=== PATIENT | female | born 1970 | race African-American/Black ===

== ENCOUNTER 2017-02-06 10:31 | Emergency (ER) | payer OTHER ==
[2017-02-06 11:05] VITALS: BP 162/114
--- NOTE | 2017-02-06 11:55 | UC ---
Abdominal Pain Female HPI - HPI Summary HPI Summary: 3 days of constipation, abd pain nausea was unable to eat today - History of Current Complaint Chief Complaint: UCAbdominalPain Stated Complaint: VOMITING, RECTAL DISCOMFORT AND NAUSEA Time Seen by Provider: 02/06/17 11:22 Hx Obtained From: Patient Hx Last Menstrual Period: 01/23/17 ?: No Onset/Duration: Gradual Onset, Lasting Days - 3, Still Present Timing: Constant Severity Initially: Moderate Severity Currently: Moderate Pain Intensity: 5 Pain Scale Used: 0-10 Numeric Location: Diffuse - lower Radiates: No Character: Cramping Aggravating Factor(s): Nothing Alleviating Factor(s): Nothing Associated Signs and Symptoms: Positive: Constipation, Decreased Appetite, Nausea Allergies/Adverse Reactions: Allergies Allergy/AdvReac Type Severity Reaction Status Date / Time No Known Allergies Allergy Verified 02/06/17 10:56 PMH/Surg Hx/FS Hx/Imm Hx Previously Healthy: Yes - Surgical History Surgical History: Yes Surgery Procedure, Year, and Place: lump removed from left breast - Family History Known Family History: Positive: None - Social History Occupation: Unemployed Lives: With Family Alcohol Use: None Substance Use Type: None Smoking Status (MU): Never Smoked Tobacco Review of Systems Constitutional: Negative Skin: Negative Eyes: Negative ENT: Negative Respiratory: Negative Cardiovascular: Negative Gastrointestinal: Abdominal Pain, Nausea Genitourinary: Negative Motor: Negative Neurovascular: Negative Musculoskeletal: Negative Neurological: Negative Psychological: Negative Is Patient Immunocompromised?: No All Other Systems Reviewed And Are Negative: Yes Physical Exam Triage Information Reviewed: Yes Appearance: Well-Appearing, No Pain Distress, Well-Nourished Vital Signs: Initial Vital Signs Temp 98.6 F 02/06/17 10:57 Pulse 69 02/06/17 10:57 Resp 18 02/06/17 10:57 BP 162/114 02/06/17 10:57 Pulse Ox 100 02/06/17 10:57 Vital Signs Reviewed: Yes Eye Exam: Normal Eyes: Positive: Conjunctiva Clear ENT Exam: Normal ENT: Positive: Normal ENT inspection, Hearing grossly normal, TMs normal. Negative: Nasal congestion, Nasal drainage, Trismus, Muffled/hoarse voice Dental Exam: Normal Neck exam: Normal Neck: Positive: Supple, Nontender Respiratory Exam: Normal Respiratory: Positive: Chest non-tender, No respiratory distress, No accessory muscle use Cardiovascular Exam: Normal Cardiovascular: Positive: RRR, Brisk Capillary Refill Abdominal Exam: Normal Abdomen Description: Positive: No Organomegaly, Soft - firm in lower abdomen. Negative: CVA Tenderness (R), CVA Tenderness (L), Distended, Guarding, McBurney' s Point Tenderness, Peritoneal Signs, Pulsatile Mass, Splenomegaly Bowel Sounds: Positive: Present Musculoskeletal Exam: Normal Musculoskeletal: Positive: Strength Intact, ROM Intact Neurological Exam: Normal Neurological: Positive: Alert, Muscle Tone Normal Psychological Exam: Normal Skin Exam: Normal Diagnostics - Laboratory Diagnostic Studies Completed/Ordered: UA +1 leuks, lysed blood - Radiology No standard instances Xray Interpretation: Positive (See Comments) - moderate amont of stool no obstruction Radiology Interpretation Completed By: Radiologist Abd Pain Female Course/Dx - Course Course Of Treatment: increase fluids, culture urine, macobid, miralax follow with pcp prn - Differential Dx/Diagnosis Differential Diagnosis: Appendicitis, Bowel Obstruction, Constipation, Ovarian Cyst, Urinary Tract Infection Provider Diagnoses: Constipation, UTI, High blood pressure without diagnosis of hypertension Discharge - Discharge Plan Condition: Stable Disposition: HOME Prescriptions: Nitrofurantoin Monohyd Macro [Macrobid] 100 mg PO BID #20 cap Polyethylene Glycol 3350* [Miralax*] 17 gm PO DAILY #1 packet Patient Education Materials: Constipation (ED), Urinary Tract Infection in Women (ED), High Fiber Diet (ED), Hypertension (ED) Referrals: [facility] [place] [facility] [Outside] - 1 Week
--- NOTE | 2017-02-06 12:53 | RAD ---
INDICATION: Constipation, abdominal pain and nausea. COMPARISON: There are no prior studies available for comparison. TECHNIQUE: Supine and upright views of the abdomen were obtained. FINDINGS: The small bowel and colon appear nondistended. No free intraperitoneal air is seen. There is a moderate to large amount retained stool present. No abnormal calcifications are seen. There is a mild lumbar scoliosis convex toward the right side. IMPRESSION: MODERATE TO LARGE AMOUNT RETAINED STOOL, NO EVIDENCE FOR OBSTRUCTION.
== END 2017-02-06 13:26 | disposition home or self-care (01) ==
LOC: UCEAST 10:31
DX: K59.00 Constipation, unspecified (principal); N39.0 Urinary tract infection, site not specified; R03.0 Elevated blood-pressure reading, without diagnosis of hypertension
CPT/HCPCS: 74020; 81003; 87077; 87086; 87186; 99202; G0463

== ENCOUNTER 2017-02-09 00:30 | Emergency (ER) | payer OTHER ==
[2017-02-09] MEDS ORDERED: NS 0.9% 1000 ML* 2,000 ML IV ONE (03:45)
[2017-02-09] MEDS ORDERED: Ketorolac INJ* 30 MG/ML 1 ML VIAL IV ONE (03:51)
[2017-02-09] MEDS ORDERED: Ondansetron INJ* 2 MG/ML VIAL IV ONE (03:51)
[2017-02-09 04:37] LABS: Hematocrit 36 % (35-47); Mean Corpuscular HGB Conc 34 g/dl (31-36); Mean Corpuscular Hemoglobin 31 pg (27-31); Mean Corpuscular Volume 92 fL (80-97); Mean Platelet Volume 9 um3 (7.4-10.4); Red Blood Count 3.88 10^6/ul (4.0-5.4); Red Cell Distribution Width 13 % (10.5-15); White Blood Count 4.6 10^3/ul (3.5-10.8)
[2017-02-09 04:49] LABS: ALT 12 U/L (7-52); AST 18 U/L (13-39); Albumin 4.1 g/dL (3.2-5.2); Alkaline Phosphatase 55 U/L (34-104); Anion Gap 5 mmol/L (2-11); Blood Urea Nitrogen 12 mg/dL (6-24); C Reactive Protein < 1.00 mg/L (< 5.00); CO2 Carbon Dioxide 27 mmol/L (22-32); Calcium 9.1 mg/dL (8.6-10.3); Chloride 103 mmol/L (101-111); EGFR African American 137.2 (>60); EGFR Non-African American 106.7 (>60); Globulin 3.7 g/dL (2-4); Glucose 93 mg/dL (70-100); Lipase 40 U/L (11.0-82.0); Potassium 3.7 mmol/L (3.5-5.0); Sodium 135 mmol/L (133-145); Total Protein 7.8 g/dL (6.4-8.9)
[2017-02-09] MEDS ORDERED: Iohexol 300* (CONTRAST) 10 ML SDV IV ONE (05:45)
[2017-02-09 05:52] LABS: Urine Bacteria Absent (Absent); Urine Bilirubin Negative (Negative); Urine Glucose Negative (Negative); Urine Nitrite Negative (Negative)
--- NOTE | 2017-02-09 08:00 | RAD ---
CLINICAL HISTORY: Diffuse abdominal pain COMPARISON: None TECHNIQUE: Multiple contiguous axial CT scans were obtained of the abdomen and pelvis after the administration of intravenous contrast. Coronal and sagittal multiplanar reformations are submitted for review. Oral contrast was administered. Delayed images were obtained through the abdomen and pelvis. FINDINGS: LUNG BASES: The lung bases are clear. LIVER: The liver is normal in shape, size, contour, and attenuation. BILE DUCTS: There is no intrahepatic or extrahepatic biliary dilatation. GALLBLADDER: The gallbladder is normal, without pericholecystic inflammatory change. PANCREAS: The pancreas is normal, without mass or ductal dilatation. SPLEEN: Normal in size and appearance. UPPER GI TRACT: Evaluation of the gastrointestinal tract is limited by incomplete gastric distention. The upper GI tract is unremarkable. SMALL BOWEL AND MESENTERY: The small bowel is normal in contour, course, and caliber. There is no obstruction or dilatation. COLON: The colon is normal in contour, course, caliber. There is no pericolonic inflammatory change. There is large amount of stool throughout the colon. There is a tubular, vermiform, hollow viscus that is blind ending, and originates from the cecum, consistent with a normal appendix. There is no periappendiceal inflammatory change. This is best seen on axial image 63. ADRENALS: Normal bilaterally. KIDNEYS: The kidneys are normal in shape, size, contour, and axis. There is no hydronephrosis or nephrolithiasis. BLADDER: The bladder is smooth in contour. PELVIC ORGANS: The uterus is fibroid AORTA: The aorta is normal. IVC: Unremarkable LYMPH NODES: There is no lymphadenopathy by size criteria. ABDOMINAL WALL: There is no evidence for abdominal wall hernia. BONES AND SOFT TISSUES: Unremarkable OTHER: None IMPRESSION: FIBROID UTERUS. NO ACUTE CT PATHOLOGY OF THE VISUALIZED ABDOMEN OR PELVIS.
[2017-02-09] MEDS ORDERED: Magnesium CITRATE* 300 ML BTL PO ONE (08:20)
[2017-02-09] MEDS ORDERED: Sodium Phosphate ADULT ENEMA* 118 ml bottle PR ONE (08:20)
--- NOTE | 2017-02-09 08:20 | ED ---
Salome Christianson Rebecca, scribed for Karan iL MD on 02/09/17 at 0345 . Abdominal Pain/Female - HPI Summary HPI Summary: Pt is a 47 y/o F who presents to ED c/o abdominal pain. Sx began about 1 week ago upon arriving in the [facility] from [facility]. Pain began in the suprapubic region and is now diffuse, particularly painful in the RLQ, described as sharp pain in that location. Pain waxes and wanes in intensity. Sx aggravated by PO intake, alleviated by nothing. Additionally c/o intermittent fever, chills, nausea, abdominal bloating, and mild dysuria. Denies vaginal discharge. LNMP 1 week ago and last BM was 3 days ago. Per pt, she had a CT on Monday (3 days ago) that showed stool in her abdomen. Recent Dx of UTI for which she was started on Abx and she is unsure if they are relieving symptoms. - History of Current Complaint Chief Complaint: EDGeneral Stated Complaint: CHILLS/HEADACHE/UPSET STOMACH Time Seen by Provider: 02/09/17 03:31 Hx Obtained From: Patient Hx Last Menstrual Period: 01/23/17 Onset/Duration: Lasting Weeks - 1 week, Still Present Severity Currently: Moderate Pain Intensity: 5 Pain Scale Used: 0-10 Numeric Location: Diffuse Character: Sharp - in the RLQ Aggravating Factor(s): Food Alleviating Factor(s): Nothing Associated Signs and Symptoms: Positive: Fever, Nausea Allergies/Adverse Reactions: Allergies Allergy/AdvReac Type Severity Reaction Status Date / Time No Known Allergies Allergy Verified 02/09/17 00:40 PMH/Surg Hx/FS Hx/Imm Hx Previously Healthy: Yes Endocrine/Hematology History: Denies: Hx Diabetes Cardiovascular History: Denies: Hx Coronary Artery Disease, Hx Hypertension - Surgical History Surgery Procedure, Year, and Place: lump removed from left breast Infectious Disease History: No Infectious Disease History: Reports: Traveled Outside the [place] in Last 30 Days - Family History Known Family History: Positive: Cardiac Disease - mother - Social History Alcohol Use: None Substance Use Type: Reports: None Smoking Status (MU): Never Smoked Tobacco Review of Systems Positive: Fever, Chills Positive: Abdominal Pain, Nausea, Other - Abdominal distention Positive: dysuria All Other Systems Reviewed And Are Negative: Yes Physical Exam - Summary Physical Exam Summary: General: well-appearing, mild pain distress Skin: warm, color reflects adequate perfusion, dry Head: normal Eyes: EOMI, KYLE ENT: normal Neck: supple, nontender Respiratory: CTA, breath sounds present Cardiovascular: RRR Abdomen: soft, diffuse, mild tenderness Bowel: hypoactive bowel sounds Musculoskeletal: normal, strength/ROM intact Neurological: normal, sensory/motor intact, A&O x3 Psychological: affect/mood appropriate Triage Information Reviewed: Yes Vital Signs On Initial Exam: Initial Vitals Temp Pulse Resp BP Pulse Ox 98.6 F 63 16 166/91 100 02/09/17 00:30 02/09/17 00:30 02/09/17 00:30 02/09/17 00:30 02/09/17 00:30 Vital Signs Reviewed: Yes Diagnostics - Vital Signs Vital Signs Temp Pulse Resp BP Pulse Ox 02/09/17 02:00 98.4 F 64 16 147/88 100 02/09/17 00:30 98.6 F 63 16 166/91 100 - Laboratory Lab Results: Lab Results 02/09/17 02/09/17 02/09/17 Range/Units 04:15 04:15 04:15 WBC 4.6 (3.5-10.8) 10^3/ul RBC 3.88 L (4.0-5.4) 10^6/ul Hgb 12.0 (12.0-16.0) g/dl Hct 36 (35-47) % MCV 92 (80-97) fL MCH 31 (27-31) pg MCHC 34 (31-36) g/dl RDW 13 (10.5-15) % Plt Count 239 (150-450) 10^3/ul MPV 9 (7.4-10.4) um3 Neut % (Auto) 32.6 L (38-83) % Lymph % (Auto) 53.9 H (25-47) % [place] % (Auto) 8.0 (1-9) % Eos % (Auto) 4.1 (0-6) % Baso % (Auto) 1.4 (0-2) % Absolute Neuts (auto) 1.5 (1.5-7.7) 10^3/ul Absolute Lymphs (auto) 2.5 (1.0-4.8) 10^3/ul Absolute Monos (auto) 0.4 (0-0.8) 10^3/ul Absolute Eos (auto) 0.2 (0-0.6) 10^3/ul Absolute Basos (auto) 0.1 (0-0.2) 10^3/ul Absolute Nucleated RBC 0.02 10^3/ul Nucleated RBC % 0.4 Sodium 135 (133-145) mmol/L Potassium 3.7 (3.5-5.0) mmol/L Chloride 103 (101-111) mmol/L Carbon Dioxide 27 (22-32) mmol/L Anion Gap 5 (2-11) mmol/L BUN 12 (6-24) mg/dL Creatinine 0.60 (0.51-0.95) mg/dL Est GFR ( Amer) 137.2 (>60) Est GFR (Non-Af Amer) 106.7 (>60) BUN/Creatinine Ratio 20.0 (8-20) Glucose 93 (70-100) mg/dL Lactic Acid 0.8 (0.5-2.0) mmol/L Calcium 9.1 (8.6-10.3) mg/dL Total Bilirubin 0.20 (0.2-1.0) mg/dL AST 18 (13-39) U/L ALT 12 (7-52) U/L Alkaline Phosphatase 55 (34-104) U/L C-Reactive Protein < 1.00 (< 5.00) mg/L Total Protein 7.8 (6.4-8.9) g/dL Albumin 4.1 (3.2-5.2) g/dL Globulin 3.7 (2-4) g/dL Albumin/Globulin Ratio 1.1 (1-3) Lipase 40 (11.0-82.0) U/L Beta HCG, Quant 0.90 mIU/mL Urine Color Urine Appearance Urine pH (5-9) Ur Specific Addy (1.010-1.030) Urine Protein (Negative) Urine Ketones (Negative) Urine Blood (Negative) Urine Nitrate (Negative) Urine Bilirubin (Negative) Urine Urobilinogen (Negative) Ur Leukocyte Esterase (Negative) Urine WBC (Auto) (Absent) Urine RBC (Auto) (Absent) Ur Squamous Epith Cells (Absent) Urine Bacteria (Absent) Urine Glucose (Negative) 10/05/17 Range/Units 05:20 WBC (3.5-10.8) 10^3/ul RBC (4.0-5.4) 10^6/ul Hgb (12.0-16.0) g/dl Hct (35-47) % MCV (80-97) fL MCH (27-31) pg MCHC (31-36) g/dl RDW (10.5-15) % Plt Count (150-450) 10^3/ul MPV (7.4-10.4) um3 Neut % (Auto) (38-83) % Lymph % (Auto) (25-47) % [place] % (Auto) (1-9) % Eos % (Auto) (0-6) % Baso % (Auto) (0-2) % Absolute Neuts (auto) (1.5-7.7) 10^3/ul Absolute Lymphs (auto) (1.0-4.8) 10^3/ul Absolute Monos (auto) (0-0.8) 10^3/ul Absolute Eos (auto) (0-0.6) 10^3/ul Absolute Basos (auto) (0-0.2) 10^3/ul Absolute Nucleated RBC 10^3/ul Nucleated RBC % Sodium (133-145) mmol/L Potassium (3.5-5.0) mmol/L Chloride (101-111) mmol/L Carbon Dioxide (22-32) mmol/L Anion Gap (2-11) mmol/L BUN (6-24) mg/dL Creatinine (0.51-0.95) mg/dL Est GFR ( Amer) (>60) Est GFR (Non-Af Amer) (>60) BUN/Creatinine Ratio (8-20) Glucose (70-100) mg/dL Lactic Acid (0.5-2.0) mmol/L Calcium (8.6-10.3) mg/dL Total Bilirubin (0.2-1.0) mg/dL AST (13-39) U/L ALT (7-52) U/L Alkaline Phosphatase (34-104) U/L C-Reactive Protein (< 5.00) mg/L Total Protein (6.4-8.9) g/dL Albumin (3.2-5.2) g/dL Globulin (2-4) g/dL Albumin/Globulin Ratio (1-3) Lipase (11.0-82.0) U/L Beta HCG, Quant mIU/mL Urine Color Straw Urine Appearance Cloudy Urine pH 6.0 (5-9) Ur Specific Addy 1.003 L (1.010-1.030) Urine Protein Negative (Negative) Urine Ketones Negative (Negative) Urine Blood 1+ H (Negative) Urine Nitrate Negative (Negative) Urine Bilirubin Negative (Negative) Urine Urobilinogen Negative (Negative) Ur Leukocyte Esterase 3+ H (Negative) Urine WBC (Auto) 2+(11-20/hpf) H (Absent) Urine RBC (Auto) 1+(3-5/hpf) H (Absent) Ur Squamous Epith Cells Present H (Absent) Urine Bacteria Absent (Absent) Urine Glucose Negative (Negative) Result Diagrams: 02/09/17 04:15 02/09/17 04:15 Lab Statement: Any lab studies that have been ordered have been reviewed, and results considered in the medical decision making process. - CT CT Abd/Pel CT Interpretation Completed By: Radiologist - Pending radiology interpretation. See MedCenterDisplay for results. Abdominal Pain Fem Course/Dx - Course Course Of Treatment: Medications reviewed this visit. BP noted and advised follow up with PCP. DISCUSSED RESULTS WITH PATIENT/PARTNER. PATIENT WILL USE FLEETS/MG CITRATE/GOLYTELY AT HOME. F/U PMD;RETURN IF WORSE. - Diagnoses Provider Diagnoses: Constipation, Fibroids, Abdominal pain Discharge - Discharge Plan Condition: Stable Disposition: HOME Prescriptions: Peg 3000 Gi Lavage* [Golytely*] 4,000 ml PO ONCE #1 btl Patient Education Materials: Uterine Fibroids (ED), Constipation (ED), Abdominal Pain (ED) Referrals: [facility] [Outside] Additional Instructions: FOLLOW UP WITH YOUR DOCTOR. RETURN TO THE EMERGENCY DEPARTMENT FOR ANY WORSENING OF YOUR CONDITION; PAIN, FEVER, YOU FEEL ILL OR QUESTIONS OR CONCERNS. The documentation as recorded by the Salome hughes Rebecca accurately reflects the service I personally performed and the decisions made by me, Karan Li MD.
[2017-02-09 08:49] VITALS: BP 128/77
--- NOTE | 2017-02-11 09:18 | ED ---
Progress - Progress Note Progress Note: Pt's prelim urine cx results reveal w/ 10-25,000 e. coli - pt does not appear to be taking anbx at this time. Will wait for final results to contact pt and update sx. If none, this is a mild finding and may not require tx. Course/Dx - Course Course Of Treatment: Medications reviewed this visit. BP noted and advised follow up with PCP. DISCUSSED RESULTS WITH PATIENT/PARTNER. PATIENT WILL USE FLEETS/MG CITRATE/GOLYTELY AT HOME. F/U PMD;RETURN IF WORSE. - Diagnoses Provider Diagnoses: Constipation, Fibroids, Abdominal pain
== END 2017-02-09 08:47 | disposition home or self-care (01) ==
LOC: ED 00:30
DX: K59.00 Constipation, unspecified (principal); D25.9 Leiomyoma of uterus, unspecified; R10.9 Unspecified abdominal pain
CPT/HCPCS: 36415; 74177; 80053; 81003; 81015; 83605; 83690; 84702; 85025; 86140; 87077; 87086; 87186; 96374; 96375; 99284; A9270-GY; J1885; J2405; Q9967

== ENCOUNTER 2017-02-12 15:21 | Emergency (ER) | payer OTHER ==
--- NOTE | 2017-02-12 15:51 | UC ---
Hip/Pelvis Pain - HPI Summary HPI Summary: 47 y/o female presents to the urgent care c/o of left side lower back pain and left hip pain. Pt reports she has Hx of tore muscle in her left hip last year 2015. Pt states she was doing some exercises, squatting yesterday and then pain developed. pain is 10/10, sharp w/o any radiation. Pt took ibuprofen 400mg PO since yesterday which has helped. Last dose this morning at 900. she can ambulate, but with difficulty. Pain is worse laying down. P{t was recently at the clinic on 02/06/2017 Dx with UTI. Pt denies fever, urinary or bowel incontinence, saddle anesthesia, SOB, chest pain, N/V/D. - History Of Current Complaint Chief Complaint: UCUpperExtremity Stated Complaint: L HIP PAIN Time Seen by Provider: 02/12/17 15:49 Hx Obtained From: Patient Hx Last Menstrual Period: January 23 ?: No Onset/Duration: Gradual Onset, Lasting Days - 1 day, Still Present Timing: Constant Severity Initially: Severe Severity Currently: Severe Pain Intensity: 10 Pain Scale Used: 0-10 Numeric Location: Discrete At: - Left side of lowr back, Radiates To: - left hip Character Of Pain: Sharp Aggravating Factor(s): Movement Alleviating Factor(s): Rest, OTC Medications Associated Signs And Symptoms: Positive: Other - numbness and tingling over the lower extremity Related History: Other - muscle tear of the left hip in 2015 - Risk Factors Septic Arthritis Risk Factor: Negative - Allergies/Home Medications Allergies/Adverse Reactions: Allergies Allergy/AdvReac Type Severity Reaction Status Date / Time No Known Allergies Allergy Verified 02/09/17 00:40 PMH/Surg Hx/FS Hx/Imm Hx Previously Healthy: No - seen in the ER for severe constipation 5 days ago - Surgical History Surgical History: Yes Surgery Procedure, Year, and Place: lump removed from left breast - Family History Known Family History: Positive: Cardiac Disease - mother, Hypertension - Social History Occupation: Unemployed Lives: With Family Alcohol Use: None Substance Use Type: None Smoking Status (MU): Never Smoked Tobacco Review of Systems Constitutional: Negative Skin: Negative Eyes: Negative ENT: Negative Respiratory: Negative Cardiovascular: Negative Gastrointestinal: Negative Genitourinary: Negative Motor: Negative Neurovascular: Negative Musculoskeletal: Other: - left side lower back pain, left hip pain Neurological: Negative Psychological: Negative Is Patient Immunocompromised?: No All Other Systems Reviewed And Are Negative: Yes Physical Exam Triage Information Reviewed: Yes Appearance: Well-Appearing, No Pain Distress, Well-Nourished, Thin Vital Signs Reviewed: Yes Eyes: Positive: Conjunctiva Clear - PERRLA, EOMI fundi grossly normal ENT: Positive: Normal ENT inspection, Hearing grossly normal, Pharynx normal, TMs normal - B/L external ear canals clear Neck: Positive: Supple, Nontender, No Lymphadenopathy Respiratory: Positive: Chest non-tender, Lungs clear, Normal breath sounds, No respiratory distress Cardiovascular: Positive: RRR, No Murmur, Pulses Normal, Brisk Capillary Refill Abdomen Description: Positive: Nontender, No Organomegaly, Soft. Negative: CVA Tenderness (R), CVA Tenderness (L) Bowel Sounds: Positive: Present Musculoskeletal: Positive: Strength Intact - all 4 extremities, No Edema, Other : - BACK: Patient walked into the urgent care room with symmetric ambulation, mild signs of limping, able to bear weight. No signs of trauma, No masses palpated. left paraspinal muscle tenderness at the level of S1-S2, point tenderness at the mid left gluteus, no swelling, No CVAT, no flank ecchymosis . No sacroiliac notch tenderness, No saddle anesthesia.ROM: limited flexion/ extension/ lateral bending and rotation due to pain, Straight Leg Raise: positive.Patellar reflexes: brisk, symmetric Muscle strength lower extremities. Dorsiflexion/ plantar flexion of ankles. Heel/ toe walk. Lower extremities: Femoral, popliteal, posterior tibial, and dorsalis pedis pulses WNL. Neurological Exam: Normal Psychological Exam: Normal Skin Exam: Normal Hip Injury Course/Dx - Course Course Of Treatment: 47 y/o female presents to the urgent care c/o of left side lower back pain and left hip pain. Pt reports she has Hx of tore muscle in her left hip last year 01/2016. Pt states she was doing some exercises, squatting yesterday and then pain developed. pain is 10/10, sharp w/o any radiation. Pt took ibuprofen 400mg PO since yesterday which has helped. Last dose this morning at 900. she can ambulate, but with difficulty. Pain is worse laying down. P{t was recently at the clinic on 02/06/2017 Dx with UTI. Pt denies fever, urinary or bowel incontinence, saddle anesthesia, SOB, chest pain, N/V/D. Hx obtained. Pt given toradol Im inj 60mg for pain,Pt tolerated well medication and after 20min pt's pain decrease and she felt better. Most likely Pt with Scitica on examination. Pt Rx Medrol dose malou PO, Flexeril PO and Naproxen PO for pain. Given PT referral for further management. If not improvement of symptoms to f/u with Orthopedic or PCP for further treatment. Pt explained discharge instructions. Pt understood and agreed, left the clinic ambulating and feeling better. - Differential Dx/Diagnosis Differential Diagnosis/HQI/PQRI: Arthritis, Contusion, Sciatica, Sprain, Strain Provider Diagnoses: 1- Acute lower back pain. 2- Sciatica Discharge - Discharge Plan Condition: Stable Disposition: HOME Prescriptions: Cyclobenzaprine TAB* [Flexeril 10 MG TAB*] 10 mg PO TID PRN #15 tab PRN Reason: Spasms - Muscle Methylprednisolone [Medrol Dosepak 4 MG*] 4 mg PO .SEE MALOU INSTRUCTION #1 malou Naproxen TAB* [Naprosyn 250 mg TAB*] 500 mg PO Q8H PRN #30 tab PRN Reason: Pain Patient Education Materials: Sciatica (ED), Acute Low Back Pain (ED) Referrals: [facility] [Outside] No Primary Care Phys,NOPCP [Primary Care Provider] - Additional Instructions: 1- Please take Naproxen PO as directed after meals for pain. 2- Take Flexeril PO and medrol dose malou as directed for muscle spasm. Please do not drive while taking the medication. 3- Wear a back support. Avoid strenuous exercise of heavy lifting. 4- Please follow up with Orthopedic Dr or your PCP in 3 days if not improvement of symptoms, for further management.
[2017-02-12 15:52] VITALS: BP 138/88
[2017-02-12] MEDS ORDERED: Ketorolac INJ* 60 MG/2 ML VIAL IM ONE (16:12)
== END 2017-02-12 17:10 | disposition home or self-care (01) ==
LOC: UCEAST 15:21
DX: M54.30 Sciatica, unspecified side (principal); M54.5 Low back pain
CPT/HCPCS: 96372; 99212; G0463; J1885

== ENCOUNTER 2017-05-05 09:07 | Emergency (ER) | payer OTHER ==
[2017-05-05 11:56] LABS: ABS Basophils 0 10^3/ul (0-0.2); ABS Eosinophils 0.1 10^3/ul (0-0.6); ABS Lymphocytes 1.7 10^3/ul (1.0-4.8); ABS Monocytes 0.3 10^3/ul (0-0.8); ABS Neutrophils 1.9 10^3/ul (1.5-7.7); ABS Nucleated RBC 0 10^3/ul; Eosinophil % 3.1 % (0-6); Hematocrit 35 % (35-47); Hemoglobin 11.8 g/dl (12.0-16.0); Lymphocyte % 41.7 % (25-47); Mean Corpuscular HGB Conc 34 g/dl (31-36); Mean Corpuscular Hemoglobin 32 pg (27-31); Mean Corpuscular Volume 94 fL (80-97); Mean Platelet Volume 9 um3 (7.4-10.4); Nucleated Red Blood Cells % 0.1; Platelet Count 205 10^3/ul (150-450); Red Cell Distribution Width 14 % (10.5-15); White Blood Count 4.2 10^3/ul (3.5-10.8)
[2017-05-05 12:08] LABS: EGFR Non-African American 120.5 (>60)
--- NOTE | 2017-05-05 12:21 | RAD ---
INDICATION: Uterine fibroids COMPARISON: None TECHNIQUE: Longitudinal and transverse transabdominal scans of the pelvis were obtained. FINDINGS: Uterus: The uterus is enlarged and heterogeneous without several fibroids. In the lower uterine segment to the right of midline is a 3.9 x 3.5 x 4.2 cm fibroid. In the fundal region is a 3.1 x 2.2 x 3.5 cm fibroid. The uterus measures 9.3 x 4.3 x 6.5 cm. Endometrial thickness: The endometrial thickness is measured at 0.4 cm. . Free fluid: There is trace free fluid in the cul-de-sac . Ovaries: The ovaries are normal in size. The right ovary measures 3.3 x 1.8 x 2.0 cm. The left ovary measures 2.6 x 2.5 x 2.5 cm. There is a 1.9 cm cyst, likely functional cyst in the right ovary. There is 1.7 cm cyst, likely a functional cyst in the left ovary. Doppler interrogation demonstrates flow to each ovary. Other: None IMPRESSION: FIBROID UTERUS. SMALL BILATERAL FOLLICLES
[2017-05-05 12:58] VITALS: BP 137/101
--- NOTE | 2017-05-05 16:48 | ED ---
Ino Christianson Natalie, scribed for West Amin MD on 05/05/17 at 1132 . Abdominal Pain/Female - HPI Summary HPI Summary: The pt is a 47 y/o F presenting to the ED c/o abd pain in low abd onset 3 months ago, worsening since last night. Every time she eats or drinks, she becomes bloated. The pain is alleviated by nothing. The pt is currently in pain , rated 9/10 in severity. She visited [facility] before coming to the ED. Pt additionally c/o cramping. Pt denies diarrhea, constipation, and nausea. She normally gets menstrual pains, but her LNMP was 3 months ago. She has hx of hemorrhoids and fibroids. - History of Current Complaint Chief Complaint: EDAbdPain Stated Complaint: ABD PAIN Time Seen by Provider: 05/05/17 10:32 Hx Obtained From: Patient Hx Last Menstrual Period: January 23 Onset/Duration: Lasting Weeks - on and off for last 3 months, Still Present, Worse Since - last night Timing: Constant Severity Initially: Severe Severity Currently: Severe Pain Intensity: 9 Pain Scale Used: 0-10 Numeric Location: Other - lower abd Radiates: No Character: Cramping Aggravating Factor(s): Nothing Associated Signs and Symptoms: Positive: Other: - POSITIVE: cramping; NEGATIVE: constipation, diarrhea, nausea Allergies/Adverse Reactions: Allergies Allergy/AdvReac Type Severity Reaction Status Date / Time No Known Allergies Allergy Verified 02/09/17 00:40 PMH/Surg Hx/FS Hx/Imm Hx Previously Healthy: No Endocrine/Hematology History: Denies: Hx Diabetes Cardiovascular History: Denies: Hx Coronary Artery Disease, Hx Hypertension History: Denies: Hx Dialysis, Hx Renal Disease - Surgical History Surgery Procedure, Year, and Place: lump removed from left breast Infectious Disease History: No Infectious Disease History: Denies: Traveled Outside the [place] in Last 30 Days - Family History Known Family History: Positive: Cardiac Disease - mother, Hypertension - Social History Alcohol Use: None Substance Use Type: Reports: None Smoking Status (MU): Never Smoked Tobacco Review of Systems Negative: Fever Positive: Abdominal Pain - lower abd, Other - constipation. Negative: Diarrhea , Nausea All Other Systems Reviewed And Are Negative: Yes Physical Exam Triage Information Reviewed: Yes Vital Signs On Initial Exam: Initial Vitals Temp Pulse Resp BP Pulse Ox 97.7 F 58 16 154/102 99 05/05/17 09:24 05/05/17 09:24 05/05/17 09:24 05/05/17 09:24 05/05/17 09:24 Vital Signs Reviewed: Yes Appearance: Positive: Well-Appearing, No Pain Distress Skin: Positive: Warm, Skin Color Reflects Adequate Perfusion, Dry Head/Face: Positive: Normal Head/Face Inspection Eyes: Positive: EOMI, KYLE Neck: Positive: Supple, Nontender Respiratory/Lung Sounds: Positive: Clear to Auscultation, Breath Sounds Present Cardiovascular: Positive: RRR, Pulses are Symmetrical in both Upper and Lower Extremities Abdomen Description: Positive: Other: - slight distension of lower portion of abd, enlarged uterine fundus Bowel Sounds: Positive: Present Musculoskeletal: Positive: Normal, Strength/ROM Intact Neurological: Positive: Normal, Sensory/Motor Intact, Alert, Oriented to Person Place, Time - [place] Coma Scale Coma Scale Total: 15 Diagnostics - Vital Signs Vital Signs Temp Pulse Resp BP Pulse Ox 05/05/17 10:19 55 99 05/05/17 10:17 149/93 05/05/17 09:24 97.7 F 58 16 154/102 99 - Laboratory Lab Results: Lab Results 05/05/17 05/05/17 Range/Units 11:41 11:41 WBC 4.2 (3.5-10.8) 10^3/ul RBC 3.70 L (4.0-5.4) 10^6/ul Hgb 11.8 L (12.0-16.0) g/dl Hct 35 (35-47) % MCV 94 (80-97) fL MCH 32 H (27-31) pg MCHC 34 (31-36) g/dl RDW 14 (10.5-15) % Plt Count 205 (150-450) 10^3/ul MPV 9 (7.4-10.4) um3 Neut % (Auto) 46.3 (38-83) % Lymph % (Auto) 41.7 (25-47) % [place] % (Auto) 7.8 (1-9) % Eos % (Auto) 3.1 (0-6) % Baso % (Auto) 1.1 (0-2) % Absolute Neuts (auto) 1.9 (1.5-7.7) 10^3/ul Absolute Lymphs (auto) 1.7 (1.0-4.8) 10^3/ul Absolute Monos (auto) 0.3 (0-0.8) 10^3/ul Absolute Eos (auto) 0.1 (0-0.6) 10^3/ul Absolute Basos (auto) 0 (0-0.2) 10^3/ul Absolute Nucleated RBC 0 10^3/ul Nucleated RBC % 0.1 Sodium 136 (133-145) mmol/L Potassium 4.3 (3.5-5.0) mmol/L Chloride 106 (101-111) mmol/L Carbon Dioxide 27 (22-32) mmol/L Anion Gap 3 (2-11) mmol/L BUN 11 (6-24) mg/dL Creatinine 0.54 (0.51-0.95) mg/dL Est GFR ( Amer) 155.0 (>60) Est GFR (Non-Af Amer) 120.5 (>60) BUN/Creatinine Ratio 20.4 H (8-20) Glucose 83 (70-100) mg/dL Calcium 9.1 (8.6-10.3) mg/dL Total Bilirubin 0.20 (0.2-1.0) mg/dL AST 16 (13-39) U/L ALT 11 (7-52) U/L Alkaline Phosphatase 43 (34-104) U/L Total Protein 6.8 (6.4-8.9) g/dL Albumin 3.6 (3.2-5.2) g/dL Globulin 3.2 (2-4) g/dL Albumin/Globulin Ratio 1.1 (1-3) Lipase 27 (11.0-82.0) U/L Beta HCG, Quant < 0.60 mIU/mL Result Diagrams: 05/05/17 11:41 05/05/17 11:41 Lab Statement: Any lab studies that have been ordered have been reviewed, and results considered in the medical decision making process. - Ultrasound No standard instances Ultrasound Interpretation: Positive (See Comments) - Pelvic Ultrasound. FIBROID UTERUS. SMALL BILATERAL FOLLICLES. ED physician has reviewed this report. Ultrasound Interpretation Completed By: Radiologist Abdominal Pain Fem Course/Dx - Course Course Of Treatment: pt with months of low abd fullness, known fibroids. Enlarged uterus with mult fibroids on US. From [facility], looking for medical care here from this prior to returning. Start OCP and refer to INSURANCE DEFENSE ATTORNEY for surgical referral. - Diagnoses Provider Diagnoses: Chronic pelvic pain in female, Uterine fibroid Discharge - Discharge Plan Condition: Good Disposition: HOME Prescriptions: Naproxen [Naproxen 500 mg] 500 mg PO BID PRN #10 tab PRN Reason: Pain Norgestimate-Eth Estradiol(NF) [Ortho Tri-Cyclen (NF)] 1 tab PO DAILY #1 packet Patient Education Materials: Uterine Fibroids (ED) Referrals: [facility] [Provider Group] No Primary Care Phys,NOPCP [Primary Care Provider] - Additional Instructions: Call OBGYN group today to schedule follow up. You can discuss surgical options with them. Return with fever, vomiting, worse or other concerns as discussed. The documentation as recorded by the Ino hughes Natalie accurately reflects the service I personally performed and the decisions made by me, West Amin MD.
== END 2017-05-05 13:15 | disposition home or self-care (01) ==
LOC: ED 09:07
DX: R10.2 Pelvic and perineal pain (principal); R10.30 Lower abdominal pain, unspecified; D25.9 Leiomyoma of uterus, unspecified; K59.00 Constipation, unspecified
CPT/HCPCS: 36415; 76856; 80053; 83690; 84702; 85025; 99282

== ENCOUNTER 2017-05-06 02:15 | Emergency (ER) | payer OTHER ==
[2017-05-06] MEDS ORDERED: Ondansetron INJ* 2 MG/ML VIAL IV ONE (02:37)
[2017-05-06] MEDS ORDERED: Morphine INJ* 2 MG/ML 1 ML CARPUJECT IV ONE (02:37)
[2017-05-06] MEDS ORDERED: Morphine INJ* 2 MG/ML 1 ML SYRINGE (TWO MG - NEW SYRINGE VERSION) ONE (02:48)
[2017-05-06 03:12] LABS: ABS Basophils 0.1 10^3/ul (0-0.2); ABS Eosinophils 0.1 10^3/ul (0-0.6); ABS Lymphocytes 2.1 10^3/ul (1.0-4.8); ABS Monocytes 0.3 10^3/ul (0-0.8); ABS Neutrophils 1.5 10^3/ul (1.5-7.7); ABS Nucleated RBC 0 10^3/ul; Eosinophil % 3.2 % (0-6); Hematocrit 36 % (35-47); Hemoglobin 12.2 g/dl (12.0-16.0); Lymphocyte % 50.9 % (25-47); Mean Corpuscular HGB Conc 34 g/dl (31-36); Mean Corpuscular Hemoglobin 32 pg (27-31); Mean Corpuscular Volume 93 fL (80-97); Mean Platelet Volume 9 um3 (7.4-10.4); Nucleated Red Blood Cells % 0; Platelet Count 225 10^3/ul (150-450); Red Blood Count 3.85 10^6/ul (4.0-5.4); Red Cell Distribution Width 14 % (10.5-15); White Blood Count 4.2 10^3/ul (3.5-10.8)
[2017-05-06 03:16] LABS: Urine Appearance Cloudy; Urine Blood 3+ (Negative); Urine Color Yellow; Urine Ketones Negative (Negative); Urine Protein Negative (Negative); Urine Urobilinogen Negative (Negative)
[2017-05-06] MEDS ORDERED: Iohexol 300* (CONTRAST) 10 ML SDV IV ONE (04:33)
[2017-05-06] MEDS ORDERED: Levofloxacin TAB* 500 MG PO ONE (06:10)
--- NOTE | 2017-05-06 06:23 | ED ---
Audie Christianson Gabriel, scribed for Keyur Gilmore on 05/06/17 at 0225 . Abdominal Pain/Female - HPI Summary HPI Summary: This patient is a 47 year old F presenting to [facility] with a chief complaint of ABD pain since yesterday. The patient rates the pain 10/10 in severity. Patient reports nausea. Patient denies vomiting and diarrhea. Patient was seen here earlier today and was diagnosed with uterus fibroids and says they are bleeding. - History of Current Complaint Chief Complaint: EDAbdPain Stated Complaint: ABD PAIN, HERE EARLIER TODAY Hx Obtained From: Patient Hx Last Menstrual Period: January 23 Onset/Duration: Lasting Days - 1, Still Present Timing: Constant Severity Initially: Severe Severity Currently: Severe Pain Intensity: 10 Pain Scale Used: 0-10 Numeric Location: Diffuse Radiates: No Associated Signs and Symptoms: Positive: Nausea. Negative: Vomiting, Diarrhea Allergies/Adverse Reactions: Allergies Allergy/AdvReac Type Severity Reaction Status Date / Time No Known Allergies Allergy Verified 02/09/17 00:40 PMH/Surg Hx/FS Hx/Imm Hx Endocrine/Hematology History: Denies: Hx Diabetes Cardiovascular History: Denies: Hx Coronary Artery Disease, Hx Hypertension History: Denies: Hx Dialysis, Hx Renal Disease - Surgical History Surgery Procedure, Year, and Place: lump removed from left breast Infectious Disease History: No Infectious Disease History: Denies: Traveled Outside the [place] in Last 30 Days - Family History Known Family History: Positive: Cardiac Disease - mother, Hypertension - Social History Alcohol Use: None Substance Use Type: Reports: None Smoking Status (MU): Never Smoked Tobacco Review of Systems Negative: Fever Positive: Abdominal Pain, Nausea. Negative: Vomiting, Diarrhea All Other Systems Reviewed And Are Negative: Yes Physical Exam - Summary Physical Exam Summary: Appearance: Well appearing, no pain distress Skin: warm, dry, reflects adequate perfusion Head/face: normal Eyes: EOMI, KYLE ENT: normal Neck: supple, non-tender Respiratory: CTA, breath sounds present Cardiovascular: RRR, pulses symmetrical Abdomen: soft. Tenderness in RLQ Bowel: present Musculoskeletal: normal, strength/ROM intact Neuro: normal, sensory motor intact, A&Ox3 Triage Information Reviewed: Yes Vital Signs On Initial Exam: Initial Vitals Temp Pulse Resp BP Pulse Ox 97.8 F 66 16 152/100 98 05/06/17 02:17 05/06/17 02:17 05/06/17 02:17 05/06/17 02:17 05/06/17 02:17 Vital Signs Reviewed: Yes Diagnostics - Vital Signs Vital Signs Temp Pulse Resp BP Pulse Ox 05/06/17 02:17 97.8 F 66 16 152/100 98 - Laboratory Lab Results: Lab Results 05/06/17 05/06/17 Range/Units 02:55 02:55 WBC 4.2 (3.5-10.8) 10^3/ul RBC 3.85 L (4.0-5.4) 10^6/ul Hgb 12.2 (12.0-16.0) g/dl Hct 36 (35-47) % MCV 93 (80-97) fL MCH 32 H (27-31) pg MCHC 34 (31-36) g/dl RDW 14 (10.5-15) % Plt Count 225 (150-450) 10^3/ul MPV 9 (7.4-10.4) um3 Neut % (Auto) 36.5 L (38-83) % Lymph % (Auto) 50.9 H (25-47) % [place] % (Auto) 8.2 (1-9) % Eos % (Auto) 3.2 (0-6) % Baso % (Auto) 1.2 (0-2) % Absolute Neuts (auto) 1.5 (1.5-7.7) 10^3/ul Absolute Lymphs (auto) 2.1 (1.0-4.8) 10^3/ul Absolute Monos (auto) 0.3 (0-0.8) 10^3/ul Absolute Eos (auto) 0.1 (0-0.6) 10^3/ul Absolute Basos (auto) 0.1 (0-0.2) 10^3/ul Absolute Nucleated RBC 0 10^3/ul Nucleated RBC % 0 Urine Color Yellow Urine Appearance Cloudy Urine pH 6.0 (5-9) Ur Specific [place] 1.020 (1.010-1.030) Urine Protein Negative (Negative) Urine Ketones Negative (Negative) Urine Blood 3+ H (Negative) Urine Nitrate Negative (Negative) Urine Bilirubin Negative (Negative) Urine Urobilinogen Negative (Negative) Ur Leukocyte Esterase 3+ H (Negative) Urine WBC (Auto) 3+(>20/hpf) H (Absent) Urine RBC (Auto) 2+(6-10/hpf) H (Absent) Ur Squamous Epith Cells Present H (Absent) Ur Transition Epith Cell Present H (Absent) Ur Renal Epithelial Cell Present H (Absent) Urine Bacteria Absent (Absent) Urine Glucose Negative (Negative) Result Diagrams: 05/06/17 02:55 Lab Statement: Any lab studies that have been ordered have been reviewed, and results considered in the medical decision making process. - CT CT ABD/Pelvis CT Interpretation Completed By: Radiologist - fibroids, No definite acute pathology. ED physician has reviewed this radiology report. Abdominal Pain Fem Course/Dx - Course Course Of Treatment: This patient is a 47 year old F presenting to [facility] with a chief complaint of ABD pain since yesterday. The patient rates the pain 10/10 in severity. Patient reports nausea. Patient denies vomiting and diarrhea. Patient was seen here earlier today and was diagnosed with uterus fibroids and says they are bleeding. CT ABD/Pelvis reveals, per radiologist, fibroids, No definite acute pathology. Bloodwork was obtained. In the ED course the patient was given morphine and Zofran. Patient will be discharged with prescription for levaquin and given a physician referral packet for a PCP. The patient is agreeable with this plan. - Diagnoses Differential Diagnosis: Positive: Appendicitis, Constipation, Diverticulitis, Urinary Tract Infection Provider Diagnoses: UTI (urinary tract infection), Fibroids, Abdominal pain Discharge - Discharge Plan Condition: Stable Disposition: HOME Prescriptions: Levofloxacin TAB* [Levaquin TAB*] 500 mg PO DAILY #5 tab Patient Education Materials: Levofloxacin (By mouth), Uterine Fibroids (ED), Urinary Tract Infection in Women (ED) Referrals: [facility]ERR[facility] [Outside] - 3 Days No Primary Care Phys,NOPCP [Primary Care Provider] - Additional Instructions: RETURN TO THE EMERGENCY DEPARTMENT FOR CHANGING OR WORSENING SYMPTOMS. The documentation as recorded by the Audie hughes Gabriel accurately reflects the service I personally performed and the decisions made by Mando johns Emmanuel.
[2017-05-06 06:39] VITALS: BP 149/85
--- NOTE | 2017-05-06 10:59 | RAD ---
CLINICAL HISTORY: Abdominal pain COMPARISON: CT abdomen pelvis dated February 09, 2017 as well as pelvic ultrasound May 05, 2017 TECHNIQUE: Contrast enhanced CT examination of the abdomen and pelvis from the lung bases through the initial tuberosities. The patient received 72 mL Omnipaque 300 intravenously prior to imaging.The patient received oral contrast as well prior to imaging. FINDINGS: VISUALIZED LUNG BASES: The visualized lung bases are grossly clear. There is no pleural effusion. ABDOMEN AND PELVIS: The liver, spleen, pancreas and adrenal glands are grossly normal in appearance. The gallbladder is normal. The kidneys are normal in appearance without focal mass, calcification or signs of hydronephrosis. The oral contrast as progressed as far as the distal small bowel which limits evaluation of the terminal ileum and colon. The small and large bowel are not distended. The patient's normal appendix is identified in the right lower quadrant with gas in the lumen measuring 7 mm in diameter (coronal image 33 and axial image 56) the gas and stool-filled colon does not exhibit any obvious acute abnormalities.. There is no gross retroperitoneal or mesenteric lymphadenopathy. As was seen on the previous pelvic ultrasound there are multiple uterine fibroids causing the uterus to appear enlarged and heterogeneous. There is 2 fibroids adjacent to each other in the right pelvis with a combined dimension of 2.7 x 6.1 cm in the axial plane and approximately 4.7 cm in the anterior-posterior projection. Likely abutting and displacing the endometrium, there is a low-attenuation fibroid measuring 2.7 x 2.2 x 2.5 cm. The abdominal aorta and iliac arteries are normal in course and diameter. The bones are grossly normal. IMPRESSION: As was seen on the previous pelvic ultrasound there are multiple low-attenuation masses in the uterus most consistent with uterine fibroids. The low attenuation of these fibroids on CT examination indicates the possibility of cystic degeneration which can present with more acute and/or acutely exacerbated pelvic pain. If clinically warranted, imaging confirmation can be made with MRI of the pelvis with and without IV contrast. If the patient's symptoms are due to her uterine fibroids then uterine artery embolization is a treatment option that should be considered.
== END 2017-05-06 06:53 | disposition home or self-care (01) ==
LOC: ED 02:15
DX: N39.0 Urinary tract infection, site not specified (principal); D25.9 Leiomyoma of uterus, unspecified; R10.9 Unspecified abdominal pain; R11.0 Nausea
CPT/HCPCS: 36415; 74177; 81003; 81015; 85025; 87086; 96374; 96375; 96376; 99283; J2270; J2405; Q9967

== ENCOUNTER 2017-05-25 11:49 | Observation (INO) | payer OTHER ==
[~2017-05-25 11:49] MED LIST: HYDROmorphone PCA* 20 MG/20 ML PCA.SYRING PCA SCH
[2017-05-25] MEDS ORDERED: LORazepam TAB(*) 1 MG ONE (12:46)
[2017-05-25] MEDS ORDERED: Naproxen TAB* 250 MG ONE (12:46)
[2017-05-25] MEDS ORDERED: oxyCODONE/Acetamin 5/325 MG* TAB ONE (12:47)
[2017-05-25] MEDS ORDERED: Scopolamine 1.5 mg* PATCH ONE (12:47)
[2017-05-25] MEDS ORDERED: Clindamycin 900 MG IVPREMIX(* 900 MG/50 ML SDV IV ONE (13:00)
[2017-05-25] MEDS ORDERED: oxyCODONE SR TAB(*) 10 MG TAB.SR PO ONE (13:10)
[2017-05-25] MEDS ORDERED: Ketorolac INJ* 30 MG/ML 1 ML VIAL ONE ×2 (13:13→13:20)
[2017-05-25] MEDS ORDERED: fentaNYL* 50 MCG/ML 5 ML VIAL (250 MCG VIAL) ONE (13:13)
[2017-05-25] MEDS ORDERED: Midazolam* 1 MG/ML 10 ML VIAL (10 MG) ONE (13:13)
[2017-05-25] MEDS ORDERED: Heparin 2 UNITS/ML IVPREMIX* 2,000 ML IV ONE (13:14)
[2017-05-25] MEDS ORDERED: Iodixanol* (CONTRAST) 320 MG/ML 100 ML SDV ONE ×2 (13:14→13:15)
[2017-05-25] MEDS ORDERED: Lidocaine 1% INJ* 10 MG/ML 30 ML SDV ONE (13:14)
[2017-05-25] MEDS ORDERED: nitroGLYCERIN DRIP* 25,000 MCG/250 ML BTL ONE (13:14)
[2017-05-25] MEDS ORDERED: Flumazenil* 0.1 MG/ML 5 ML MDV ONE (13:14)
[2017-05-25] MEDS ORDERED: Naloxone* 0.4 MG/ML 1 ML VIAL ONE (13:14)
[2017-05-25] MEDS ORDERED: Ondansetron INJ* 2 MG/ML VIAL ONE (14:10)
[2017-05-25] MEDS ORDERED: HYDROmorphone INJ* 1 MG/ML CARPUJECT SYRINGE ONE (15:19)
[2017-05-25] MEDS: NS 0.9% 1000 ML* 1,000 ML IV SCH ×2 (15:50→21:05)
--- NOTE | 2017-05-25 16:53 | RAD ---
CPT II Codes: 6045F Procedure(s) performed: * Aortography that included imaging of the abdominal aorta, bilateral renal arteries, bilateral ovarian arteries in the bilateral iliac arterial system. * Catheter arteriography of the bilateral uterine arteries. * Catheter embolization of the bilateral uterine arteries. Date of service: May 25, 2017 Indication for procedure: Extreme menstrual pain that has been progressively worsening since at least 2006 in the presence of multiple uterine fibroids. Comparison: CT abdomen pelvis and pelvic ultrasound dated 05/06/2017 and 05/05/2017 respectively Contrast: 150 mL Visipaque 320 Fluoroscopy Time: 22.7 minutes Vessels Accessed: Percutaneous access was obtained with ultrasound guidance in the right common femoral artery in the retrograde. Catheter arteriography, with the catheter tip located within the lumen of the following arteries, was performed at the Aorta (just above the branch point of the bilateral renal arteries), Bilateral Internal Iliac Arteries, Bilateral Uterine Arteries. Anesthesia: Conscious sedation with IV Fentanyl and Versed as well as local 1% lidocaine injected locally at the arteriotomy site. Conscious sedation time: Timeout: 1342 hours Case end: 1512 hours Total conscious sedation time: 1 hour and 40 minutes Additional medications: * 475 mcg IA nitroglycerin injected intermittently throughout the course of the procedure to alleviate arterial spasm. * Intra-arterial Toradol, 15 mg injected into each uterine artery, for a total of 30 mg intra-arterial. * Intravenous Toradol, 30 mg. * Transdermal scopolamine patch 1.5 mg applied to the mastoid process prior to the procedure beginning. * Prior to the procedure the patient received Ativan 1 mg p.o., Percocet 5/325 p.o., Naprosyn 250 mg p.o. and Zofran 4 mg IV. PROCEDURE NOTE AND INTRAPROCEDURAL IMAGING FINDINGS: Immediately prior to the procedure the patient signed consent after thoroughly discussing all risks and benefits. The patient was positioned on the fluoroscopy table in the supine position and the bilateral groins were shaved, prepped and draped in standard sterile fashion. Using fluoroscopic imaging the location of the right common femoral head was marked externally with a skin marker on the patient's groin. Utilizing sonographic guidance and palpation the right common femoral artery was cannulated overlying the right femoral head with an 18-gauge needle. An ultrasound image was saved. A 0.035 inch Bentson wire was slowly and smoothly advanced to the aortic bifurcation under fluoroscopic imaging. No buckling of the wire was visualized to indicate dissection. Over the wire a 5 Tunisian sidearm sheath was advanced until the tip was in the right external iliac artery under fluoroscopic control. Over the 0.035" Bentsen wire a "pigtail" multi sidehole injection catheter was advanced to the infrarenal abdominal aorta. An aortogram was performed visualizing the lower abdominal aorta and complete bilateral iliac arterial system as far as the bifurcation of the femoral arteries. Arteriography demonstrated normal aortoiliac arterial anatomy and enlarged uterine arteries. Early filling of the patient's uterine fibroids was observed. Utilizing a Bentson wire and 5-Tunisian Contra 2 flush catheter the left common iliac artery was accessed. The wire was advanced under fluoroscopic control to the left superficial femoral artery, the C2 catheter was removed and exchanged for a 5-Tunisian Merit Empress catheter which was then formed in the lower abdominal aorta. With the wire tip extending slightly from the tip of the catheter the ipsilateral right common iliac artery was selected and the catheter tip was advanced into the right internal iliac artery. Contrast arteriography was performed with the tip of the 5-Tunisian catheter in the right internal iliac artery and multiple branch arteries to identify the location of the right uterine artery. Once the uterine artery was identified, a Renegade High-flow microcatheter and microwire were advanced into the parent catheter and, in conjunction with contrast angiography, the uterine artery was identified and selected with the micro catheter. Prior to embolization, contrast injection into the horizontal portion of the uterine artery demonstrated no large, obvious collateral blood flow to the ovary or a definite cervicovaginal branch descending inferiorly. Intra-arterial nitroglycerin was injected intermittently to alleviate arterial spasm. Under fluoroscopic control approximately 1 and 1/2 vials of 500-700 micron Embospheres were slowly injected into the uterine artery to near complete stasis. [place] through the embolization 15 mg of Toradol was injected intra-arterially. The microcatheter was pulled back into the more proximal descending portion of the uterine artery and contrast angiography depicted near complete stasis of the uterine artery. An additional contrast arteriogram was performed through the 5-Tunisian catheter with the tip in the proximal right internal iliac artery demonstrating adequately patent flow and all branches of the anterior posterior division and no flow in the recently embolized right uterine artery. Satisfied with embolization on the right attention was turned to the left side. Utilizing the 5-Tunisian catheter and wire the catheter was advanced to the proximal most portion of the left external iliac artery. Arteriography was performed. The 5-Tunisian catheter was used to access the proximal left internal iliac artery. Arteriography with the tip of the catheter in the left internal iliac artery was performed delineating the origin of the left uterine artery. A small amount of contrast extravasation was noted in a small branch artery along the left pelvic wall. Once the uterine artery was identified, a Renegade High-flow microcatheter and microwire were advanced into the parent catheter and, in conjunction with contrast angiography, the uterine artery was identified and selected with the micro catheter. Prior to embolization, contrast injection into the horizontal portion of the uterine artery demonstrated a branch artery partially filling the left ovary. Intra-arterial nitroglycerin was injected intermittently to alleviate arterial spasm. Attempt was made to advance the microcatheter and wire beyond the branch point to the left ovary but the artery branches off of the distal most portion of the main uterine artery and the wire and catheter would not advance further. Considering the patient is 47 years old and that no such ovarian collaterals were visualized on the right side, it was determined that it would be of little to no clinical consequence to proceed with embolization with the catheter at its current location. Certainly the patient's severe menstrual pain expressed during consultation outweighed fears of premature menopause. Under fluoroscopic control approximately 1 and 1/4 vials of 500-700 micron Embospheres were slowly injected into the uterine artery to near complete stasis. [place] through the embolization 15 mg of Toradol was injected intra-arterially. The microcatheter was pulled back into the more proximal descending portion of the uterine artery and contrast angiography depicted near complete stasis of the uterine artery. Multiple arteriograms through the microcatheter with the tip in the uterine artery and anterior division of the left internal iliac artery were performed demonstrating adequate stasis of the left uterine artery and brisk flow through the remaining anterior division arteries. No active extravasation was seen at the left pelvic sidewall and the patient remained hemodynamically stable throughout the procedure. The microcatheter was removed and arteriography was performed at the proximal left internal iliac artery through the 5-Tunisian catheter demonstrating brisk patent flow throughout the all of the internal iliac arteries except the left uterine artery which exhibited near complete stasis. Again, no active extravasation was seen. Considering the size of the patient's uterus it was anticipated that more embolization beads would be used than the left and 3 vials injected and therefore aortography was performed to evaluate for any ovarian artery flow to the uterus or uterine fibroids. Over the 0.035" Bentsen wire a "pigtail" multi sidehole injection catheter was advanced just above the level of the branch point renal arteries at the L1/L2 level of the abdominal aorta. An aortogram was performed visualizing the abdominal aorta and complete bilateral iliac arterial system as far as the bifurcation of the femoral arteries. The bilateral renal arteries are widely patent. No hypertrophy ovarian arteries were identified bilaterally. Brisk flow is noted in all branches of the bilateral internal iliac arteries except for the uterine arteries which exhibit flow stasis. Again, no active extravasation was seen in the left hemipelvis. The wire was reinserted into the pigtail catheter and both were removed. The access sheath was removed and pressure was held at the common femoral arteriotomy for approximately 15 minutes. There were no signs of bleeding at the right groin access site and the site was dressed with sterile gauze and Tegaderm. The patient tolerated the procedure well and was transferred to the short stay recovery unit in stable condition for routine overnight observation and pain and nausea control. SUMMARY OF PROCEDURE, IMAGING FINDINGS AND INTERVENTIONS PERFORMED: 1. Diagnostic studies performed: * Arterial access was obtained at the right common femoral artery in the retrograde direction (i.e. towards the heart) with ultrasound guidance. A sonographic image was recorded. * Diagnostic catheter angiography (necessary to perform the appropriate interventions) was performed with the catheter tip in the suprarenal aorta, bilateral internal iliac arteries, left external iliac artery, the bilateral uterine arteries as well as scattered branches of the anterior division of the bilateral internal iliac arteries. * Catheter arteriography was performed of the abdominal aorta including the bilateral renal arteries and inferior mesenteric artery and bilateral iliac arterial system as far as the proximal bilateral superficial femoral arteries. 2. Interpretation of diagnostic studies performed: * Uterine fibroids supplied by bilateral uterine arteries. * No hypertrophied ovarian arteries supplying blood flow to the uterus or fibroids were discerned. 3. Surgical interventions performed: * Near stasis embolization of the bilateral uterine arteries utilizing a total of 2 and 1/2 vials 500-700 um Embospheres. * At least partial embolization of the left ovary due to a distant branch artery from the uterine artery partially feeding the left ovary. Attempts were made to advance the catheter beyond the branch point without success. Considering the patient's age, the fact that there was no evidence of right ovarian embolization and the patient's severe pelvic pain secondary to fibroids; it was determined to proceed with embolization as the small risk of premature menopause in a 47-year-old woman did not outweigh the benefits of uterine fibroid embolization. 4. Interpretation of interventions performed: * Final arteriography demonstrated near complete stasis of the bilateral uterine arteries. * Approximately at the midpoint of the procedure a small sidewall arterial branch of the left hemipelvis exhibited a small amount of extravasation which remained stable throughout the procedure. PLAN: 1. The patient will be admitted to short stay surgical unit for routine overnight observation including pain and nausea control. 2. Outpatient clinical and imaging follow-up according to the Interventional Radiology protocol.
--- NOTE | 2017-05-25 17:56 | PN ---
Progress Note - Progress Note Date of Service: 05/25/17 SOAP: Subjective: Cornelio is present at bedside. Patient with low pelvic pain "about the same as her bad period pain". Denies nausea. No emesis. Has taken a couple small sips of water. Objective: Selected Entries 05/25/17 17:32 Temperature 97.7 F Pulse Rate 72 Respiratory 14 Rate Blood Pressure 138/81 (mmHg) Blood Pressure 95 Mean O2 Sat by Pulse 100 Oximetry Patient on Room Yes Air Sleepy, but arousable to voice. AAO x 3 Abd & pelvis is soft, tender to palpation over the uterus. Right common femoral arteriotomy site is soft, nontender Dressing is C/D/I 2+ pulses at right TOWER CLIMBER, pop and DPA Right leg and foot neuromuscular intact grossly Clear yellow urine noted in billings bag Assessment: 47 YOF s/p Uterine Fibroid Embolization with nausea and pain adequately controlled. Plan: 1. Standard post UFE pain and nausea control during overnight observation. 2. Will see patient tomorrow a.m.
[2017-05-25] MEDS ORDERED: HYDROmorphone INJ* 2 MG/ML CARPUJECT SYRINGE ONE (18:52)
[2017-05-25] MEDS ORDERED: Metoclopramide IV* 5 MG/ML 2 ML VIAL ONE (18:53)
[2017-05-25] MEDS: HYDROmorphone INJ* 1 MG/ML CARPUJECT SYRINGE IV SLOW PU ONE (18:59)
[2017-05-25] MEDS: Metoclopramide IV* 5 MG/ML 2 ML VIAL IV SLOW PU ONE (19:00)
[2017-05-25] MEDS: Ondansetron INJ* 2 MG/ML VIAL IV SCH (20:07)
[2017-05-25] MEDS: Ketorolac INJ* 15 MG/ML 1 ML VIAL IV PUSH SCH (20:07)
--- NOTE | 2017-05-25 20:07 | HP ---
CC: Dr. Bennie Peña; Leigha Lal NP * HISTORY AND PHYSICAL: DATE OF ADMISSION: 05/25/17 PRIMARY CARE PROVIDER: Leigha Lal NP ATTENDING PHYSICIAN: Dr. Shyam Steele * (dictated by Katalina Lopez NP). CHIEF COMPLAINT: Pelvic pain. HISTORY OF PRESENT ILLNESS: Ms. Hurley is a 47-year-old female with past medical history significant for uterine leiomyoma and heavy menstrual periods who was referred to Interventional Radiology with extreme menstrual pain in the presence of multiple uterine fibroids. In 2005, the patient underwent a laparoscopy for suspected endometriosis and was found to not have endometriosis at that time and was diagnosed with an ovarian cyst. Around the same time, the patient had ultrasound showing uterine fibroids. In 2010, the patient began having more severe pelvic pain during mensuration and had a repeat pelvic ultrasound showing multiple uterine fibroids. Since 2010, the patient has had severe menstrual pain for at least 7 days of a 21-day cycle. In the past, she has received morphine and codeine to relieve her pain. She started taking Ortho Tri-Cyclen to try to shrink her fibroids and felt as though this did decrease her pain some and giving her shorter time-frame of 10 days instead of 21 days. She had typical periods of 5 days of bleeding with 2 heavier days, requiring 4 pads in the course of 24 hours. The patient has been recently developed pain with urination which prompted her to visit the emergency room on May 05 when she was experiencing severe pelvic pain and pain with urination. She reports intermittent dyspareunia that resolved after completion of sexual intercourse. The patient has been in her usual state of health prior to her procedure today. Denies any fever, chills, chest pain, shortness of breath, nausea, vomiting, diarrhea. The patient was seen in consultation by Dr. Peña who recommended she undergo a uterine fibroid embolization. PAST MEDICAL HISTORY: Uterine leiomyoma. PAST SURGICAL HISTORY: 1. Status post breast lumpectomy. 2. Status post laparoscopic procedure. HOME MEDICATIONS: Include Ortho Tri-Cyclen 0.18/0.215/0.25 mg - 35 mcg 1 tablet oral every day. ALLERGIES: No known drug allergies. FAMILY HISTORY: The patient's father passed from a stroke. Her mother passed from an RI. She denies any family history of diabetes or cancer. SOCIAL HISTORY: The patient does not smoke or drink alcohol or use recreational drugs. Her , Cornelio Hurley will be her surrogate decision maker in the event she is unable to make decisions for herself. REVIEW OF SYSTEMS: I performed an 11-point review of systems, all the pertinent positive and negatives are mentioned in the history of present illness. Remaining review of systems are negative. PHYSICAL EXAMINATION GENERAL APPEARANCE: The patient is pleasant, appears to be in no acute distress. VITAL SIGNS: Temperature 97.9, heart rate 75, respiratory rate 14, O2 sat 99% on 2 L via nasal cannula, blood pressure 115/77. HEENT: Normocephalic, atraumatic. Pupils are equal and reactive to light. Extraocular movements are intact. RESPIRATORY: There is no accessory muscle use. Lungs are clear to auscultation. CARDIOVASCULAR: Regular rate and rhythm, S1, S2 present. There are no murmurs , rubs, or gallops heard. ABDOMEN: Soft, nontender, nondistended. Bowel sounds present x4. EXTREMITIES: There is no lower extremity edema. DP, PT pulses are 2+ and symmetric. MUSCULOSKELETAL: There is no clubbing or cyanosis noted. The patient exhibits good strength in all extremities. NEUROLOGIC: The patient is alert and oriented, but drowsy. Cranial nerves II through XII are grossly intact. PSYCHOLOGICAL: The patient is calm and cooperative. SKIN: There are no rashes or abnormalities. The patient has a puncture site to her right groin with a dressing that is clean, dry and intact and the site is soft. IMPRESSION: Ms. Hurley is a 47-year-old female with past medical history significant for uterine leiomyoma who is status post a uterine fibroid embolization with Dr. Bennie Peña today. She will be admitted as an observation. ASSESSMENT/PLAN: 1. Uterine leiomyoma - Status post uterine fibroid embolization. She will be on clear liquid diet, advance as tolerated. She will be in bedrest with her right leg straight until 8 pm at which time she will be able to get up with assistance. She will have a urinary catheter in place until 9 pm and then that will be removed. She will have a Dilaudid ASSOCIATE PROFESSOR OF ART HISTORY in addition to Toradol for pain and Zofran for nausea. 2. Fluids, electrolytes and nutrition: Clear liquid diet, advance as tolerated. 3. Code status: Full code. 4. DVT prophylaxis: The patient is at low risk and will have SCDs until she is up and ambulatory. 5. Disposition: Observation. TIME SPENT: Time for this admission was approximately 60 minutes, greater than half of that was spent with the patient and discussing medications, past medical history and events leading up to her arrival today and performing a physical examination. The case has been reviewed with the attending, Dr. Steele, who agrees with the plan of care. Reviewed by MAC JACK 05/27/17 1615 [id number]/[facility] [place] #: [id number] EMILY
[2017-05-25] MEDS ORDERED: Metoclopramide IV* 5 MG/ML 2 ML VIAL IV PRN (21:50)
[2017-05-26] MEDS: NS 0.9% 1000 ML* 1,000 ML IV SCH ×2 (02:10→07:38)
[2017-05-26] MEDS: Ketorolac INJ* 15 MG/ML 1 ML VIAL IV PUSH SCH ×2 (02:28→08:42)
[2017-05-26] MEDS: Ondansetron INJ* 2 MG/ML VIAL IV SCH ×2 (02:30→08:43)
--- NOTE | 2017-05-26 08:23 | PN ---
Progress Note - Progress Note Date of Service: 05/26/17 SOAP: Subjective: Cornelio during bedside evaluation. Pain currently controlled rated at 4/10. Emesis previous night, but none since then. Nausea controlled. Drank sips of water overnight. Objective: Selected Entries 05/26/17 05/26/17 07:20 07:45 Temperature 98.9 F Temperature Temporal Artery Source Scan Pulse Rate 92 Respiratory 16 Rate Blood Pressure 140/73 (mmHg) Blood Pressure 89 Mean O2 Sat by Pulse 100 Oximetry NAD, AAO x 3 Abd & Pelvis are soft, minimal tenderness elicited pressing over uterus Right CF arteriotomy is soft, nontender Dressing is CDI 2+ pulse at right APPLICATION TRAINER, pop and DPA RLE is neuromuscular intact Assessment: 47 year old woman POD#1 Uterine Fibroid Embolization with pain and nausea reasonably well controlled. Plan: 1. Encourage plain breakfast intake. 2. Dilaudid COMPOUNDING AND FINISHING SUPERVISOR and IV Zofran taken down, replace with PO Toradol 10 mg and Zofran 4 mg. 3. Ambulate around unit with assistance every other hour.
[2017-05-26] MEDS: Ondansetron TAB* 4 MG PO SCH ×2 (09:35→16:58)
[2017-05-26] MEDS: Ketorolac TAB * 10 MG TAB PO SCH ×2 (09:41→16:58)
[2017-05-26] MEDS ORDERED: HYDROcodone/ACETAMIN 5-325 MG* 1 TAB ONE (09:50)
[2017-05-26] MEDS ORDERED: HYDROmorphone INJ* 2 MG/ML CARPUJECT SYRINGE ONE (09:51)
[2017-05-26] MEDS ORDERED: HYDROcodone/ACETAMIN 5-325 MG* 1 TAB PO PRN ×4 (10:12→14:00)
[2017-05-26] MEDS ORDERED: LORazepam TAB(*) 1 MG PO PRN (13:38)
--- NOTE | 2017-05-26 14:53 | PN ---
Progress Note - Progress Note Date of Service: 05/26/17 SOAP: Subjective: Nausea controlled. No recent emesis. Patient reports eating fruits and vegetables for lunch and drinking lots of water. Persistent pelvic pain. Objective: Selected Entries 05/26/17 05/26/17 11:07 14:01 Temperature 98.7 F Pulse Rate 84 Respiratory 16 Rate Blood Pressure 153/90 (mmHg) Blood Pressure 105 Mean O2 Sat by Pulse 97 Oximetry NAD, AAO x 3, sitting up in bed Abd and pelvis remain soft, tender over uterus Right groin is soft, nontender Dressing is CDI 2+ pulses in RLE Right leg neuromuscular intact Assessment: 47 YOF POD #1 UFE with pain and nausea reasonably controlled after adding Ativan and Reglan to the Rx regimen. Patient is able to eat and take PO medications, ambulate independently and use the bathroom. Plan: 1. I encouraged the patient to not remain in recumbent position at all times and that she will feel better sooner if she walks regularly and sits in a chair. I also advised her that she will have some discomfort, but it will improve at home as the days pass. 2. D/C to home. 3. Interventional Radiology follow up will include RN clinic follow up telephone calls 05/29/17 and 06/02/17. The patient will be returning to [facility] for the indefinite future and therefore terminal superintendent follow up will occur via email communication. This was discussed with the patient during consultation. 4. Outpatient Rx regimen will include: Toradol 10 mg PO Q 6 hours x 3 days, dispense #15, 1 refill AFTER 3 days of Toradol, start Naproxen 250 mg PO every 12 hours x 3 days (DO NOT COMBINE TORADOL AND NAPROXEN) [place] 5/325 1 or 2 tablets PO Q 6 hours PRN x 5 days, dispense #30 (thirty), no refills Ativan 1 mg PO Q 12 hours PRN x 3 days, dispense #10 (ten) Zofran 4 mg PO Q 6 hours x 5 days, dispense #30, 1 refill Reglan 10 mg PO Q 6 hours PRN nausea not controlled by Scopolamine and Zofran x 5 days, dispense #20, 1 refill Scopoloamine 1.5 mg TD patch: on the morning of Monday, replace current patch with new patch and wear x 3 days 5. Patient and her Cornelio were advised to purchase laxative tea (E.g. Smooth Move) and drink one cup daily x 1 week to avoid constipation.
--- NOTE | 2017-05-26 16:16 | PN ---
Subjective Date of Service: 05/26/17 Interval History: Patient seen and examined at bedside. Denies fever, chills, shortness of breath , chest discomfort, V/D. Pt states that her pain and nausea are improving. Family History: Unchanged from Admission Social History: Unchanged from Admission Past Medical History: Unchanged from Admission Objective Active Medications: Hydrocodone Bitart/Acetaminophen ([place] 5-325 Tab*) 1 tab PO Q4H PRN Reason: MILD-MODERATE PAIN Hydrocodone Bitart/Acetaminophen ([place] 5-325 Tab*) 2 tab PO Q4H PRN Reason: MODERATE-SEVERE PAIN Ketorolac Tromethamine (Toradol Tab *) 10 mg PO Q6H [facility] Stop: 05/30/17 08:59 Lorazepam (Ativan Tab(*)) 1 mg PO Q6H PRN Reason: ANXIETY Metoclopramide HCl (Reglan Iv*) 10 mg IV Q6H PRN Reason: NAUSEA/VOMITING Ondansetron HCl (Zofran Tab*) 4 mg PO Q6H [facility] Vital Signs - 8 hr 05/26/17 05/26/17 05/26/17 09:00 09:53 09:54 Temperature Pulse Rate Respiratory 16 16 16 Rate Blood Pressure (mmHg) O2 Sat by Pulse 99 Oximetry 05/26/17 05/26/17 05/26/17 11:00 11:07 12:00 Temperature 98.7 F Pulse Rate 84 Respiratory 16 16 16 Rate Blood Pressure 153/90 (mmHg) O2 Sat by Pulse 97 Oximetry 05/26/17 14:01 Temperature Pulse Rate Respiratory 16 Rate Blood Pressure (mmHg) O2 Sat by Pulse Oximetry Oxygen Devices in Use Now: None Appearance: NAD, sitting up on the side of the bed Ears/Nose/Mouth/Throat: Mucous Membranes Moist Respiratory: Symmetrical Chest Expansion and Respiratory Effort, Clear to Auscultation Cardiovascular: NL Sounds; No Murmurs; No JVD, RRR Abdominal: - - Bowel sounds present, Abdomen soft, and tender in the lower abdomen, non distended Extremities: No Edema Skin: No Rash or Ulcers Neurological: Alert and Oriented x 3, NL Muscle Strength and Tone Lines/Tubes/Other Access: Clean, Dry and Intact Peripheral IV - site benign Nutrition: Taking PO's Assess/Plan/Problems-Billing Assessment: Ms. Hurley is a 47 yo female with no significant PMH who presented to the hospital for an elective uterine fibroid embolization with Dr. Peña. - Patient Problems (1) Uterine fibroid Code(s): D25.9 - LEIOMYOMA OF UTERUS, UNSPECIFIED SNOMED Code(s): 05896762 Comment: - S/P UFE - Continue pain mangement and nausea medication (2) DVT prophylaxis Code(s): HMA2123 - SNOMED Code(s): 710922311 (3) Full code status Code(s): Z78.9 - OTHER SPECIFIED HEALTH STATUS SNOMED Code(s): 876819737 Status and Disposition: OBV. Stable for discharge to home today.
[2017-05-26 17:12] VITALS: BP 127/83
--- NOTE | 2017-05-27 17:42 | DS ---
CC: Leigha Lal NP; Dr. Bennie Peña DISCHARGE SUMMARY: DATE OF ADMISSION: 05/25/17 DATE OF DISCHARGE: 05/26/17 ATTENDING PHYSICIAN: Dr. Pierre Jacobo * (dictated by Renetta Barakat NP) . PRIMARY CARE PROVIDER: Leigha Lal NP PRIMARY DIAGNOSIS: Uterine fibroids. PROCEDURES WHILE IN THE HOSPITAL: Status post uterine fibroid embolization on 05/25/[address] Bennie Peña. DISCHARGE MEDICATIONS: New home medications: 1. Toradol 10 mg oral every 6 hours for 3 days followed by naproxen 250 mg oral every 12 hours for 3 days. 2. [place] 5/325 one to two tablets oral every 6 hours as needed for severe pain for 5 days. 3. Ativan 1 mg oral every 12 hours as needed for anxiety for 3 days. 4. Zofran 4 mg oral every 6 hours for 5 days. 5. Reglan 10 mg oral every 6 hours as needed for nausea not controlled by scopolamine and Zofran for 5 days. 6. Scopolamine patch 1.5 mg transdermal patch, remove current patch and replace on the morning of 05/29/17 and wear for 3 days. 7. Smooth Move tea drink 1 cup daily for a week. Continue home medications: 1. Ortho Tri-Cyclen 1 tablet oral daily. HISTORY OF PRESENT ILLNESS/HOSPITAL COURSE: Ms. Hurley is a 47-year-old female with past medical history significant for uterine leiomyoma and heavy menstrual periods, who presented initially to the emergency room on 05/05/17 when she was experiencing severe pelvic pain and pain with urination. At that time, the patient was also reporting intermittent dyspareunia that resolved after completion of sexual intercourse in addition to heavy menstrual periods and she was referred to [facility] for consultation for possible uterine fibroid embolization. In 2005, the patient underwent laparoscopy for suspected endometriosis and was found to not have endometriosis and an ovarian cyst at that time. She was also diagnosed with uterine fibroids. She had in 2010 increased pelvic pain during menstruation and had an ultrasound again showing uterine fibroids. She established care with Leigha Lal NP, and had an endometrial biopsy and then presented to the hospital on 05/25/17 for an elective uterine fibroid embolization with Dr. Bennie Peña. Hospitalists were asked to admit this patient postprocedure. While in the hospital, the patient's pain became more controlled that she was transitioned to oral pain medications. Her nausea was controlled. She was able to ambulate and tolerate her diet. She was urinating without difficulties since her urinary catheter was removed. Ms. Hurley is stable for discharge to home today. Vital signs are as follows : Temperature 98.7, heart rate 80, respiratory rate 16, O2 sat 100% on room air , blood pressure 127/83. DISCHARGE PLAN: Ms. Hurley will be discharged to home, activity as tolerated. She will be on a regular diet. As far as pain management, she will be on Toradol 10 mg oral every 6 hours for 3 days followed by naproxen 250 mg oral every 12 hours for 3 days. She has been instructed to not combine Toradol and naproxen. She has been prescribed [place] 5/325 one or two tablets oral every 6 hours as needed for breakthrough pain for 5 days. In addition, she has a prescription for Ativan 1 mg oral every 12 hours as needed for anxiety. For nausea, she has Zofran 4 mg oral every 6 hours for 5 days and Reglan 10 mg oral every 6 hours as needed for nausea not controlled by scopolamine patch and Zofran. She has been prescribed 1 scopolamine patch to change the current patch on 05/29/17, and wear that for 3 more days. She has been instructed to purchase a laxative tea such Smooth Move tea and drink 1 cup daily for a week to avoid constipation. She will receive a followup call from nurse at [facility] on 05/29/17, and again on Monday, . She has been provided instructions for wound care for her groin site. The patient has plans to return to [facility] and will follow long- term via e- mail communication with Dr. Peña. She should follow with Leigha Lal NP, as needed. She has been asked to return to the emergency room for any chest pain, shortness of breath. This is a summarized report of a complex medical history and hospital stay. For further details, please see the entire medical record. TIME SPENT: Time for this discharge was approximately 50 minutes; greater than half of that was spent with the patient and discussing discharge plans and instructions. CONDITION ON DISCHARGE: Stable. RENETTA BARAKAT, TRACK REPAIR SUPERVISOR [id number]/[facility] #: [id number] [facility]
== END 2017-05-26 17:05 | disposition home or self-care (01) ==
LOC: CHICATH 11:49 → SSU 15:55
PROVIDERS: ADMIT Radiology Diagnostic Radiology; ATTEND Radiology Diagnostic Radiology
DX: D25.9 Leiomyoma of uterus, unspecified (principal); Z79.899 Other long term (current) drug therapy; R10.2 Pelvic and perineal pain; N94.10 Unspecified dyspareunia
CPT/HCPCS: 36415; 37243; 75625; 75736; 76937; 84702; 96374; 96375; 99156; 99157; A9270-GY; C1725; C1884; C1887; G0378; J1170; J1644; J1885; J2250; J2310; J2405; J2765; J3010